=== PATIENT | male | born 2000 | race American Indian/Alaskan Native ===

== ENCOUNTER 2021-10-05 04:41 | Emergency (ER) | payer SELFPAY ==
[2021-10-05 05:02] VITALS: BP 135/89
== END 2021-10-05 08:10 | disposition left against medical advice (07) ==
LOC: ED 04:41
DX: J45.909 Unspecified asthma, uncomplicated (principal); Z53.21 Procedure and treatment not carried out due to patient leaving prior to being seen by health care provider